=== PATIENT | male | born 1965 | race Caucasian/White ===

== ENCOUNTER 2016-08-21 18:20 | Emergency (ER) | payer OTHER ==
[~2016-08-21] VITALS: Ht 203.2 cm; Wt 148.3 kg
[~2016-08-21 18:20] MED LIST: ACET325T9 PO; ARIP30TA PO; ASPI81TA2 PO; BENZ2TAB5 PO; CEPH-263 PO; CLON0.5T3 PO; DOXY100C2 PO; FLUP5TAB PO; FURO80TA3 PO; GABA-586 PO; HYDR-971 PO; IBUP-1027 PO; LEVE500T6 PO; LEVO100T5 PO; MELA5CAP PO; METF500T4 PO; METO25TA4 PO; OMEP40CA5 PO; OXCA600T PO; OXCA600T3 PO; POLY17PO3 PO; POTA20TA82 PO; TRAZ50TA15 PO
[2016-08-21 18:41] VITALS: BP 134/77
--- NOTE | 2016-08-21 19:05 | PHYS DOC ---
Past Medical History Past Medical History: Anxiety, CHF, CVA, Depression, Diabetes-Type II, Hypertension, [place], Seizure, Other Additional Past Medical Histor: BIPOLAR, SUBDURAL HERMATOMA Past Surgical History: Other Additional Past Surgical Histo: VERICOSE VEINS, NEUROPATHY HIATAL HERNIA CELLULITIS Alcohol Use: Occasionally Drug Use: Cocaine Adult General Chief Complaint Chief Complaint: BACK PAIN - NO INJURY HPI HPI Patient is a 50 year old male presents to emergency department complaining of back pain and bilateral feet pain. Patient is very well-known here to the emergency department he has had multiple visits within the month. Patient states that he is having back pain from an accident that he had back in May. He also states that he is having bilateral lower feet pain from a cellulitis that he's had for over a month as well. He states that he is just having increased pain and discomfort in that is why he came to the emergency department. 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 Patient denies any other complaints at this time. Review of Systems Review of Systems Constitutional: Denies fever or chills [] Eyes: Denies change in visual acuity, redness, or eye pain [] HENT: Denies nasal congestion or sore throat [] Respiratory: Denies cough or shortness of breath [] Cardiovascular: No additional information not addressed in HPI [] GI: Denies abdominal pain, nausea, vomiting, bloody stools or diarrhea [] : Denies dysuria or hematuria [] Musculoskeletal: back pain and bilateral feet pain Integument: Denies rash or skin lesions [] Neurologic: Denies headache, focal weakness or sensory changes [] Allergies Allergies Allergies Coded Allergies Type Severity Reaction Last Updated Verified No Known Drug Allergies 04/05/16 No Physical Exam Physical Exam Constitutional: Well developed, well nourished, no acute distress, non-toxic appearance. [] HENT: Normocephalic, atraumatic, bilateral external ears normal, oropharynx moist, no oral exudates, nose normal. [] Eyes: PERRLA, EOMI, conjunctiva normal, no discharge. [] Neck: Normal range of motion, no tenderness, supple, no stridor. [] Cardiovascular:Heart rate regular rhythm, no murmur [] Lungs & Thorax: Bilateral breath sounds clear to auscultation [] Abdomen: Bowel sounds normal, soft, no tenderness, no masses, no pulsatile masses. [] Skin: Warm, dry, no erythema, no rash. [] Back: No medical spine, thoracic spine or lumbar spine tenderness. No step-offs deformities or crepitus noted. Extremities: No tenderness, no cyanosis, no clubbing, ROM intact, no edema. Bilateral lower extremities appear to have scaly feet peripheral pulses are 2+ cap refill brisk less than 2 seconds. Patient is able to ambulate with a good steady gait. Neurologic: Alert and oriented X 3, normal motor function, normal sensory function, no focal deficits noted. [] Psychologic: Affect normal, judgement normal, mood normal. [] Current Patient Data Vital Signs Vital Signs Date Time Temp Pulse Resp B/P Pulse Ox O2 Delivery O2 Flow Rate FiO2 08/21/16 18:41 97.9 76 20 95 Room Air 97.9 EKG EKG [] Radiology/Procedures Radiology/Procedures [] Course & Med Decision Making Course & Med Decision Making Pertinent Labs and Imaging studies reviewed. (See chart for details) She'll be discharged home in stable condition. Patient was instructed to go to [facility] that is open 24 hours a day to fill his prescription of hydrocodone to help with his pain and discomfort. Also spoke with patient in regards to the emergency department visits in which he has had. Explained to patient that if he has pain medication in which he can get filled he needs to comply with prior to coming to the emergency department for further pain medication. Patient then requested food explained to patient that it is after 7:00 or cafeterias) able to provide meals for him. Explained to him that he should be going to [facility] to picker tender helper his prescription he can purchase food at that time. Patient will be discharged with signs and symptoms to return back to emergency department. Dragon Disclaimer Dragon Disclaimer This electronic medical record was generated, in whole or in part, using a voice recognition dictation system. Departure Departure Impression: Primary Impression: Chronic back pain Additional Impression: Bilateral foot pain Disposition: 01 HOME, SELF-CARE Condition: STABLE Referrals: NO PCP (PCP) Patient Instructions: Chronic Back Pain, Chronic Pain Additional Instructions: You have been evaluated for your chronic back pain as well as your chronic feet pain. You state you have a prescription at [facility] in which she can picker tender helper for hydrocodone. He needs to go to [facility] and pick the prescription up. Follow-up with her primary care physician for any continuation of pain and discomfort. Return to emergency prior signs symptoms of become worse. Problem Qualifiers LOIS LOCKHART NP Aug 21, 2016 19:05
== END 2016-08-21 19:07 | disposition home or self-care (01) ==
LOC: ER 18:20
DX: G89.29 Other chronic pain (principal); M54.9 Dorsalgia, unspecified; M79.671 Pain in right foot; M79.672 Pain in left foot; F41.9 Anxiety disorder, unspecified; I11.0 Hypertensive heart disease with heart failure; I50.9 Heart failure, unspecified; I25.2 Old myocardial infarction; E11.40 Type 2 diabetes mellitus with diabetic neuropathy, unspecified; F31.9 Bipolar disorder, unspecified; F14.10 Cocaine abuse, uncomplicated; Z86.73 Personal history of transient ischemic attack (TIA), and cerebral infarction without residual deficits
CPT/HCPCS: 99281

== ENCOUNTER 2016-09-24 09:31 | Emergency (ER) | payer OTHER ==
[~2016-09-24] VITALS: Ht 203.2 cm; Wt 138.3 kg
[2016-09-24 09:31] VITALS: BP 124/63
[2016-09-24 10:02] LABS: BASO % 1 % (0-3); EOS % 2 % (0-3); HEMATOCRIT 39.8 % (39.0-53.0); HEMOGLOBIN 13.1 g/dL (13.0-17.5); LYMPH % 22 % (24-48); MEAN CORPUSCULAR HEMOGLOBIN 27 pg (25-35); MEAN CORPUSCULAR HGB CONC 33 g/dL (31-37); MEAN CORPUSCULAR VOLUME 83 fL (79-100); MONO % 8 % (0-9); NEUT % 67 % (31-73); PLATELET COUNT 153 x10^3/uL (140-400); RED BLOOD COUNT 4.81 x10^6/uL (4.30-5.70); RED CELL DISTRIBUTION WIDTH 14.9 % (11.5-14.5); WHITE BLOOD COUNT 4.7 x10^3/uL (4.0-11.0)
[2016-09-24 10:12] LABS: CALCIUM 9.2 mg/dL (8.5-10.1); CREATININE 0.9 mg/dL (0.7-1.3); GFR 88.6
--- NOTE | 2016-09-24 10:17 | RAD ---
Examination: Acute abdomen series. History: history of chest pain, abdominal pain Comparison: None available Findings: The cardiomediastinal silhouette grossly appears unremarkable. There is no acute infiltrate or visualized pneumothorax identified. No evidence of free air noted under the hemidiaphragms. Paucity of gas in the abdomen limits evaluation of small bowel. Moderate amount of feces identified throughout the colon and the rectum likely secondary to constipation. Nonspecific bowel gas pattern. Impression: 1. No acute cardiopulmonary findings. 2. Nonspecific bowel gas pattern. Moderate amount of stool noted throughout the colon and the rectum likely secondary to constipation.
[2016-09-24 10:18] LABS: ALBUMIN/GLOBULIN RATIO 1.3 (1.0-1.7); TOTAL BILIRUBIN 0.6 mg/dL (0.2-1.0); TOTAL PROTEIN 7.2 g/dL (6.4-8.2)
--- NOTE | 2016-09-24 10:29 | EKG ---
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 RI6.01 Unconfirmed report Electronically Signed On 09-26-2016 14:03:24 SHEET ROCKER by Adiel De León
--- NOTE | 2016-09-24 10:43 | ED.ADGEN ---
Past Medical History Past Medical History: Anxiety, CHF, CVA, Depression, Diabetes-Type II, Hypertension, CA, Seizure, Other Additional Past Medical Histor: BIPOLAR, SUBDURAL HERMATOMA Past Surgical History: Other Additional Past Surgical Histo: VERICOSE VEINS, NEUROPATHY HIATAL HERNIA CELLULITIS Alcohol Use: Occasionally Drug Use: None, Cocaine Adult General Chief Complaint Chief Complaint: CHEST PAIN HPI HPI Patient is a 51 year old man, history of type 2 diabetes mellitus, CAD, CHF, CVA, hypertension, bipolar disorder, history of subdural hematoma, who presents emergency department with multiple complaints. Patient states that he was exiting the grocery store naproxen hour ago, when he began experiencing some chest pain and abdominal pain. He states he experienced pain like this previously from his hiatal hernia. He states he had a little shortness of breath associated with this well. At this time he is resting comfortably. He denies any recent travel or surgery, any swelling extremities, any fevers or chills. No cough, no rhinorrhea, no sick contacts or exposures, no diarrhea, nausea or vomiting. A breakfast this morning without issue. Last bowel was yesterday and was normal. States he he has been compliant with his medications. Patient is well-known to emergency department staff for multiple previous visits for similar complaints. Review of Systems Review of Systems Constitutional: Denies fever or chills. [] Eyes: Denies change in visual acuity. [] HENT: Denies nasal congestion or sore throat. [] Respiratory: Denies cough, mild shortness of breath, now resolved. [] Cardiovascular: Midsternal chest pain and epigastric pain, no edema. GI: Epigastric abdominal pain, mild lower quadrant abdominal pain, no nausea, vomiting, bloody stools or diarrhea. [] : Denies dysuria. [] Musculoskeletal: Denies back pain or joint pain. [] Integument: Denies rash. [] Neurologic: Denies headache, focal weakness or sensory changes. [] Endocrine: Denies polyuria or polydipsia. [] Lymphatic: Denies swollen glands. [] Psychiatric: Denies depression or anxiety. [] Allergies Allergies Allergies Coded Allergies Type Severity Reaction Last Updated Verified No Known Drug Allergies 04/05/16 No Physical Exam Physical Exam Constitutional: Well developed, well nourished, no acute distress, non-toxic appearance. [] HENT: Normocephalic, atraumatic, bilateral external ears normal, oropharynx moist, no oral exudates, nose normal. [] Eyes: PERRLA, EOMI, conjunctiva normal, no discharge. [] Neck: Normal range of motion, no tenderness, supple, no stridor. [] Cardiovascular:Heart rate regular rhythm, no murmur, S1, S2, no rubs or gallops. [] Lungs & Thorax: Bilateral breath sounds clear to auscultation diminished breath sounds at bases bilaterally normal, soft, no tenderness, no masses, no pulsatile masses. [] Skin: Warm, dry, no erythema, no rash. [] Back: No tenderness, no CVA tenderness. [] Extremities: No tenderness, no cyanosis, no clubbing, ROM intact, patient with trace edema bilaterally, however based on comparative appearance, his legs are significant improvement previous examinations, no evidence of weeping or cellulitis. Neurologic: Alert and oriented X 3, normal motor function, normal sensory function, no focal deficits noted. [] Psychologic: Affect normal, judgement normal, mood normal. [] Current Patient Data Vital Signs Vital Signs Date Time Temp Pulse Resp B/P Pulse Ox O2 Delivery O2 Flow Rate FiO2 09/24/16 09:31 97.6 76 22 124/63 96 Room Air 97.6 Lab Values Laboratory Tests Test 09/24/16 09:45 09/24/16 11:00 09/24/16 11:35 White Blood Count 4.7x10^3/uL (4.0-11.0) Red Blood Count 4.81x10^6/uL (4.30-5.70) Hemoglobin 13.1g/dL (13.0-17.5) Hematocrit 39.8% (39.0-53.0) Mean Corpuscular Volume 83fL (79-100) Mean Corpuscular Hemoglobin 27pg (25-35) Mean Corpuscular Hemoglobin Concent 33g/dL (31-37) Red Cell Distribution Width 14.9% (11.5-14.5) H Platelet Count 153x10^3/uL (140-400) Neutrophils (%) (Auto) 67% (31-73) Lymphocytes (%) (Auto) 22% (24-48) L Monocytes (%) (Auto) 8% (0-9) Eosinophils (%) (Auto) 2% (0-3) Basophils (%) (Auto) 1% (0-3) Neutrophils # (Auto) 3.1x10^3uL (1.8-7.7) Lymphocytes # (Auto) 1.0x10^3/uL (1.0-4.8) Monocytes # (Auto) 0.4x10^3/uL (0.0-1.1) Eosinophils # (Auto) 0.1x10^3/uL (0.0-0.7) Basophils # (Auto) 0.0x10^3/uL (0.0-0.2) Sodium Level 139mmol/L (136-145) Potassium Level 4.0mmol/L (3.5-5.1) Chloride Level 103mmol/L (98-107) Carbon Dioxide Level 28mmol/L (21-32) Anion Gap 8 (6-14) Blood Urea Nitrogen 9mg/dL (8-26) Creatinine 0.9mg/dL (0.7-1.3) Estimated GFR (Cockcroft-Gault) 88.6 BUN/Creatinine Ratio 10 (6-20) Glucose Level 88mg/dL (70-99) Calcium Level 9.2mg/dL (8.5-10.1) Total Bilirubin 0.6mg/dL (0.2-1.0) Aspartate Amino Transferase (AST) 20U/L (15-37) Alanine Aminotransferase (ALT) 39U/L (16-63) Alkaline Phosphatase 65U/L (46-116) Troponin I Quantitative < 0.017ng/mL (0.000-0.055) UA-Fsk-H-Type Natriuretic Peptide 151pg/mL (0-124) H Total Protein 7.2g/dL (6.4-8.2) Albumin 4.0g/dL (3.4-5.0) Albumin/Globulin Ratio 1.3 (1.0-1.7) Lipase 159U/L (73-393) Urine Opiates Screen Neg (NEG) Urine Methadone Screen Neg (NEG) Urine Barbiturates Neg (NEG) Urine Phencyclidine Screen Neg (NEG) Urine Amphetamine/Methamphetamine Neg (NEG) Urine Benzodiazepines Screen Neg (NEG) Urine Cocaine Screen Neg (NEG) Urine Cannabinoids Screen Neg (NEG) Urine Ethyl Alcohol Neg (NEG) POC Troponin I 0.00ng/ml (<0.08) Laboratory Tests 09/24/16 09:45 Laboratory Tests 09/24/16 09:45 EKG EKG EC: Sinus rhythm, heart rate 69 bpm, upright axis, QTC of 419, HI of 210 , QRS of 90, no ST elevations or depressions, no evidence of acute ST abnormalities. As interpreted by me. [] Radiology/Procedures Radiology/Procedures [] [facility] [address] [place] [address] IMAGING REPORT Signed PATIENT: MANOLO RODRIGUEZ ACCOUNT: [id number] : 1965 LOCATION: ER AGE: 51 SEX: M EXAM STATUS: PRE ER ORD. PHYSICIAN: LORENA VEGA DO REASON: cp/abd pain PROCEDURE: ACUTE ABDOMEN SERIES Examination: Acute abdomen series. History: history of chest pain, abdominal pain Comparison: None available Findings: The cardiomediastinal silhouette grossly appears unremarkable. There is no acute infiltrate or visualized pneumothorax identified. No evidence of free air noted under the hemidiaphragms. Paucity of gas in the abdomen limits evaluation of small bowel. Moderate amount of feces identified throughout the colon and the rectum likely secondary to constipation. Nonspecific bowel gas pattern. Impression: 1. No acute cardiopulmonary findings. 2. Nonspecific bowel gas pattern. Moderate amount of stool noted throughout the colon and the rectum likely secondary to constipation. DICTATED and SIGNED BY: WEN STAPLES MD DATE: 09/24/16 1012 CC: LORENA VEGA DO; NO PCP ~ Course & Med Decision Making Course & Med Decision Making Pertinent Labs and Imaging studies reviewed. (See chart for details) Patient's x-ray consistent with constipation. ECG and laboratory studies not reveal any evidence of acutely concerning findings. On reevaluation, patient states that he is hungry and would like to eat. He states he does not have any food in his hotel room. Repeat troponin performed in the ED, more than 4 hours out from onset of symptoms, remains negative. No evidence that the patient is experiencing any cardiac or pulmonary disease, I did discuss this with patient, he is ready to be discharged, is agreeable with plan to follow-up with primary care provider, has his medications at home, he was given a meal box in the emergency department which she ate without any issue. Patient discharged home with instructions as above, to return for concerning symptoms, to follow-up with his primary care provider. Given bus pass, exit the emergency department without issue. Dragon Disclaimer Dragon Disclaimer This electronic medical record was generated, in whole or in part, using a voice recognition dictation system. Departure Disposition: HOME, SELF-CARE Condition: IMPROVED Scripts Docusate Sodium (Colace)100 Mg [id number] Mg PO QHS PRN CONSTIPATION #20 Prov:LORENA VEGA DO 09/24/16 LORENA VEGA DO Sep 24, 2016 10:43
[2016-09-24 11:17] LABS: BARBITURATES NEG (NEG); BENZODIAZEPINES NEG (NEG); CANNABINOIDS NEG (NEG); COCAINE NEG (NEG); ETHANOL, URINE NEG (NEG); METHADONE NEG (NEG); OPIATES NEG (NEG); PHENCYCLIDINE NEG (NEG)
[2016-09-24] MEDS ORDERED: DOCU-27 PO (12:04)
== END 2016-09-24 12:15 | disposition home or self-care (01) ==
LOC: ER 09:31
DX: R07.89 Other chest pain (principal); R10.13 Epigastric pain; E11.40 Type 2 diabetes mellitus with diabetic neuropathy, unspecified; I11.0 Hypertensive heart disease with heart failure; I50.9 Heart failure, unspecified; F31.9 Bipolar disorder, unspecified; I25.2 Old myocardial infarction; I25.10 Atherosclerotic heart disease of native coronary artery without angina pectoris; Z86.73 Personal history of transient ischemic attack (TIA), and cerebral infarction without residual deficits; F14.10 Cocaine abuse, uncomplicated
CPT/HCPCS: 36415; 74022; 80053; 83690; 83880; 84484; 85027; 93005; 99285; G0481

== ENCOUNTER 2016-09-29 14:52 | Emergency (ER) | payer SELFPAY ==
[~2016-09-29] VITALS: Ht 203.2 cm; Wt 138.3 kg
[~2016-09-29 14:52] MED LIST changes: +DOCU-27 PO
[2016-09-29 14:59] VITALS: BP 152/77
--- NOTE | 2016-09-29 15:25 | PHYS DOC ---
Past Medical History Past Medical History: Anxiety, CHF, CVA, Depression, Diabetes-Type II, Hypertension, CA, Seizure, Other Additional Past Medical Histor: BIPOLAR, SUBDURAL HERMATOMA Past Surgical History: Other Additional Past Surgical Histo: VERICOSE VEINS, NEUROPATHY HIATAL HERNIA CELLULITIS Alcohol Use: Occasionally Drug Use: None, Cocaine Adult General Chief Complaint Chief Complaint: OTHER COMPLAINTS [facility] HPI Patient is a 51 year old male with multiple comorbidities and frequent visits to the ED who presents due to hunger since not eating all day. Also mentions has chronic unchanged chest pain, abdominal pain, back pain and leg pains. States these are unchanged for months. States he sees doctors in clinic for these pain symptoms. He denies dyspnea, fatigue, n/v, diarrhea, f/c, cough, hemoptysis, orthopnea, diaphoresis, lightheadedness, palpitations. Review of Systems Review of Systems Constitutional: Denies fever or chills [] Eyes: Denies change in visual acuity, redness, or eye pain [] HENT: Denies nasal congestion or sore throat [] Respiratory: Denies cough or shortness of breath [] Cardiovascular: No additional information not addressed in HPI [] GI: Denies nausea, vomiting, bloody stools or diarrhea [] : Denies dysuria or hematuria [] Musculoskeletal: Denies joint pain [] Integument: Denies rash or skin lesions [] Neurologic: Denies headache, focal weakness or sensory changes [] Endocrine: Denies polyuria or polydipsia [] Allergies Allergies Allergies Coded Allergies Type Severity Reaction Last Updated Verified No Known Drug Allergies 04/05/16 No Physical Exam Physical Exam Constitutional: Well developed, well nourished, no acute distress, non-toxic appearance. [] HENT: Normocephalic, atraumatic, bilateral external ears normal, oropharynx moist, nose normal. [] Eyes: PERRLA, EOMI. [] Neck: Normal range of motion, supple. [] Cardiovascular:Heart rate regular rhythm [] Lungs & Thorax: Bilateral breath sounds clear to auscultation [] Abdomen: Bowel sounds normal, soft, no tenderness, soft nontender easily reducible umbilical hernia. [] Skin: Warm, dry. Lower extremities with chronic appearing brawny discoloration [] Back: No tenderness, no CVA tenderness. [] Extremities: No tenderness, ROM intact. [] Neurologic: Alert and oriented X 3, normal motor function, normal sensory function, no focal deficits noted. [] Psychologic: Affect normal, judgement normal, mood normal. [] Current Patient Data Vital Signs Vital Signs Date Time Temp Pulse Resp B/P Pulse Ox O2 Delivery O2 Flow Rate FiO2 09/29/16 14:59 98.5 71 16 152/77 99 Room Air 98.5 EKG EKG EKG as interpreted by me as normal sinus rhythm with first-degree AV block, rate 68, no ST-T changes, P-R 226, QTC 44, no ectopy Course & Med Decision Making Course & Med Decision Making Pertinent Labs and Imaging studies reviewed. (See chart for details) He was fed and he feels better and is ready to be discharged. Return precautions given. He understands and agrees with plan. Dragon Disclaimer Dragon Disclaimer This electronic medical record was generated, in whole or in part, using a voice recognition dictation system. Departure Departure Impression: Primary Impression: Hunger Additional Impressions: Chronic back pain Chest pain Lower extremity pain Disposition: HOME, SELF-CARE Condition: STABLE Referrals: NO PCP (PCP) Patient Instructions: Medical Screening Exam Additional Instructions: Follow up with your primary care doctor. Return for any concerns. Problem Qualifiers Primary Impression: Hunger Encounter type: initial encounter Qualified Code: T73.0XXA - Starvation, initial encounter Additional Impressions: Chronic back pain Back pain location: low back pain Back pain laterality: bilateral Sciatica presence: without sciatica Qualified Code: M54.5 - Low back pain Chest pain Chest pain type: other chest pain Qualified Code: R07.89 - Other chest pain Lower extremity pain Laterality: bilateral Qualified Code: M79.604 - Pain in right leg Dipesh MOMIN MD Sep 29, 2016 15:25
--- NOTE | 2016-09-29 15:54 | EKG ---
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
== END 2016-09-29 15:46 | disposition home or self-care (01) ==
LOC: ER 14:52
DX: T73.0XXA Starvation, initial encounter (principal); G89.29 Other chronic pain; M54.5 Low back pain; R07.89 Other chest pain; M79.604 Pain in right leg; F41.9 Anxiety disorder, unspecified; I11.0 Hypertensive heart disease with heart failure; I50.9 Heart failure, unspecified; I25.2 Old myocardial infarction; F31.9 Bipolar disorder, unspecified; F14.10 Cocaine abuse, uncomplicated; E11.40 Type 2 diabetes mellitus with diabetic neuropathy, unspecified; Z86.73 Personal history of transient ischemic attack (TIA), and cerebral infarction without residual deficits; X58.XXXA Exposure to other specified factors, initial encounter
CPT/HCPCS: 93005; 99283-25

== ENCOUNTER 2016-10-03 15:34 | Emergency (ER) | payer SELFPAY ==
[~2016-10-03] VITALS: Ht 203.2 cm; Wt 138.3 kg
[2016-10-03 16:33] LABS: POTASSIUM ISTAT 4.1 mmol/L (3.5-5.0)
--- NOTE | 2016-10-03 16:46 | RAD ---
Chest, 2 views, 10/03/2016: History: Shortness of breath, body aches Comparison is made to a study from 09/24/2016. The heart size and pulmonary vascularity are normal. No pulmonary infiltrates are seen. There is no evidence of pleural fluid. Moderate spurring is present in the spine. IMPRESSION: No acute cardiopulmonary abnormality is detected.
--- NOTE | 2016-10-03 16:49 | EKG ---
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
[2016-10-03] MEDS ORDERED: ACETAMINOPHEN 500 MG TABLET PO ONE (17:00)
--- NOTE | 2016-10-03 17:00 | ED.ADGEN ---
Past Medical History Past Medical History: Anxiety, Bipolar, CHF, CVA, Depression, Diabetes-Type II , Hypertension, [place], Seizure, Other Additional Past Medical Histor: SUBDURAL HERMATOMA Past Surgical History: Other Additional Past Surgical Histo: VERICOSE VEINS, NEUROPATHY, HIATAL HERNIA , CELLULITIS Alcohol Use: Occasionally Drug Use: None, Cocaine Social History Narrative: LAST USED AUGUST 2016 Adult General Chief Complaint Chief Complaint: GENERALIZED BODY ACHES HPI HPI Patient is a 51 year old man, history of bipolar disorder, CHF, COPD, CAD, subdural hematoma after fall, who presents to the emergency department with complaint of chest and back pain, body aches. Patient states he's had pain like this previously, and "they gave me hydrocodone at [facility]". He states he ran out of his hydrocodone. Patient denies any shortness of breath, any lightheadedness or dizziness, any weakness numbness or tingling. He states the pain began occurring about an hour ago, and his chest and in his lower back. No injuries, has not taken any medication prior to coming to the ED for the pain. He states he's been compliant with all of his prescribed medications otherwise. No swelling extremities. Review of Systems Review of Systems Constitutional: Denies fever or chills. [] Eyes: Denies change in visual acuity. [] HENT: Denies nasal congestion or sore throat. [] Respiratory: Denies cough or shortness of breath. [] Cardiovascular: Chest pain, no shortness of breath. GI: Denies abdominal pain, nausea, vomiting, bloody stools or diarrhea. [] : Denies dysuria. [] Musculoskeletal: Low back pain, no joint pain. Integument: Denies rash. [] Neurologic: Denies headache, focal weakness or sensory changes. [] Endocrine: Denies polyuria or polydipsia. [] Lymphatic: Denies swollen glands. [] Psychiatric: Denies depression or anxiety. [] Current Medications Current Medications Current Medications Medications (Trade) Dose Ordered Sig/Paulie Start Time Stop Time Status Last Admin Dose Admin Acetaminophen (Tylenol) 1,000 mg 1X ONCE 10/03/16 17:00 10/03/16 17:02 DC 10/03/16 17:07 1,000 MG Allergies Allergies Allergies Coded Allergies Type Severity Reaction Last Updated Verified No Known Drug Allergies 04/05/16 No Physical Exam Physical Exam Constitutional: Well developed, well nourished, no acute distress, non-toxic appearance. [] HENT: Normocephalic, atraumatic, bilateral external ears normal, oropharynx moist, no oral exudates, nose normal. [] Eyes: PERRLA, EOMI, conjunctiva normal, no discharge. [] Neck: Normal range of motion, no tenderness, supple, no stridor. [] Cardiovascular:Heart rate regular rhythm, no murmur, S1, S2, rubs or gallops. [] Lungs & Thorax: Bilateral breath sounds clear to auscultation, no wheezing, rhonchi, rales. No chest wall crepitus or tenderness. [] Abdomen: Bowel sounds normal, soft, no tenderness, no rebound, no rigidity, no guarding, no masses, no pulsatile masses. [] Skin: Warm, dry, no erythema, no rash. [] Back: No midline or paraspinal tenderness, no CVA tenderness. [] Extremities: No tenderness, no cyanosis, no clubbing, ROM intact, no edema. [ Negative Homans sign.] Neurologic: Alert and oriented X 3, normal motor function, normal sensory function, no focal deficits noted. [] Psychologic: Affect normal, judgement normal, mood normal. [] Current Patient Data Vital Signs Vital Signs Date Time Temp Pulse Resp B/P Pulse Ox O2 Delivery O2 Flow Rate FiO2 10/03/16 15:53 98 89 18 158/79 97 Room Air 98.0 Lab Values Laboratory Tests Test 10/03/16 14:45 10/03/16 16:26 10/03/16 16:29 Urine Collection Type Unknown Urine Color Yellow Urine Clarity Clear Urine pH 5.5 Urine Specific [place] 1.025 Urine Protein Negativemg/dL (NEG-TRACE) Urine Glucose (UA) Negativemg/dL (NEG) Urine Ketones (Stick) Negativemg/dL (NEG) Urine Blood Negative (NEG) Urine Nitrite Negative (NEG) Urine Bilirubin Negative (NEG) Urine Urobilinogen Dipstick 1.0mg/dL (0.2 mg/dL) Urine Leukocyte Esterase Negative (NEG) Urine RBC Rare/HPF (0-2) Urine WBC 1-4/HPF (0-4) Urine Squamous Epithelial Cells Mod/LPF Urine Bacteria Few/HPF (0-FEW) Urine Mucus Mod/LPF POC Troponin I 0.00ng/ml (<0.08) POC Hemoglobin 12.9g/dL (14-18) L POC Hematocrit 38% (37-52) POC Sodium 142mmol/L (135-145) POC Potassium 4.1mmol/L (3.5-5.0) POC Chloride 104mmol/L (98-110) POC Total CO2 23mmol/L (23-32) Anion Gap 20mmol/L (6-14) H POC Blood Urea Nitrogen 17mg/dL (8-26) POC Creatinine 1.1mg/dL (0.5-1.4) Glucose Level 111mg/dL (70-99) H POC Ionized Calcium (Yajaira) 1.16mmol/L (1.13-1.32) Laboratory Tests 10/03/16 16:29 EKG EKG EC: Sinus rhythm, heart rate 68 bpm, upright axis, QTC of 404, [place] of 204 , QRS of 90, mild baseline artifact noted, no ST elevations or depressions identified, does not meet STEMI criteria. As interpreted by me. [] Radiology/Procedures Radiology/Procedures [] [facility] [address] [place] [address] IMAGING REPORT Signed PATIENT: MANOLO RODRIGUEZ ACCOUNT: [id number] : 1965 LOCATION: ER AGE: 51 SEX: M EXAM STATUS: REG ER ORD. PHYSICIAN: LORENA VEGA DO REASON: CP PROCEDURE: CHEST PA & LATERAL Chest, 2 views, 10/03/2016: History: Shortness of breath, body aches Comparison is made to a study from 09/24/2016. The heart size and pulmonary vascularity are normal. No pulmonary infiltrates are seen. There is no evidence of pleural fluid. Moderate spurring is present in the spine. IMPRESSION: No acute cardiopulmonary abnormality is detected. DICTATED and SIGNED BY: VIDHYA MERRITT MD DATE: 10/03/16 1642 CC: LORENA VEGA DO; NO PCP ~ Course & Med Decision Making Course & Med Decision Making Pertinent Labs and Imaging studies reviewed. (See chart for details) Patient is well-known to me from previous visits. Patient is well-appearing today, with resolution of his edema the lower extremities, appears comfortable. Discussed with patient that we are unable to prescribe narcotics for this type of situation in the emergency department. Patient voices understanding, is agreeable to receiving ECG, laboratory studies to ensure that the acute having this time. Patient is requesting a meal tray. ECG, chest x-ray, i-STAT troponin and i-STAT chemistry ordered along with urinalysis to evaluate the patient's complaints. No concerning findings identified. On reevaluation patient is resting comfortably, states his resolution of his symptoms and is rated go home. Patient states he has all medications at home that he needs, and has follow-up established. Discharged home in stable condition with plan as above. Dragon Disclaimer Dragon Disclaimer This electronic medical record was generated, in whole or in part, using a voice recognition dictation system. Departure Impression: Primary Impression: Back pain Additional Impression: Chest pain Disposition: HOME, SELF-CARE Condition: IMPROVED Problem Qualifiers LORENA VEGA DO Oct 03, 2016 17:00
[2016-10-03 17:02] LABS: BILIRUBIN,URINE NEGATIVE (NEG); GLUCOSE,URINE NEGATIVE (NEG); NITRITE,URINE NEGATIVE (NEG); PH,URINE 5.5; PROTEIN,URINE NEGATIVE (NEG-TRACE)
[2016-10-03 17:18] LABS: BACTERIA,URINE FEW /HPF (0-FEW); RBC,URINE RARE /HPF (0-2); SQUAMOUS EPITHELIAL CELL,UR MOD /LPF
[2016-10-03 17:32] VITALS: BP 158/84
== END 2016-10-03 17:55 | disposition home or self-care (01) ==
LOC: ER 15:34
DX: R07.89 Other chest pain (principal); M54.5 Low back pain; I11.0 Hypertensive heart disease with heart failure; I50.9 Heart failure, unspecified; E11.40 Type 2 diabetes mellitus with diabetic neuropathy, unspecified; F31.9 Bipolar disorder, unspecified; I25.10 Atherosclerotic heart disease of native coronary artery without angina pectoris; I25.2 Old myocardial infarction; F41.9 Anxiety disorder, unspecified; F14.10 Cocaine abuse, uncomplicated; Z86.73 Personal history of transient ischemic attack (TIA), and cerebral infarction without residual deficits
CPT/HCPCS: 71020; 80047; 81001; 84484; 93005; 99285-25

== ENCOUNTER 2016-10-05 19:47 | Emergency (ER) | payer SELFPAY ==
[2016-10-05 19:53] VITALS: BP 129/64
--- NOTE | 2016-10-05 20:49 | PHYS DOC ---
Past Medical History Past Medical History: Anxiety, Bipolar, CHF, CVA, Depression, Diabetes-Type II , Hypertension, [place], Seizure, Other Additional Past Medical Histor: SUBDURAL HERMATOMA Past Surgical History: Other Additional Past Surgical Histo: VERICOSE VEINS, NEUROPATHY, HIATAL HERNIA , CELLULITIS Alcohol Use: Occasionally Drug Use: None, Cocaine Adult General Chief Complaint Chief Complaint: ABDOMINAL PAIN HPI HPI 51-year-old male well known to our emergency Department presents with a variety of complaints including abdominal pain and rib pain and headache. He also states he is very hungry and wonders if he could have a sandwich. He denies any fever chills sweats cough congestion. He denies any melena or hematemesis. [] Review of Systems Review of Systems Constitutional: Denies fever or chills [] Eyes: Denies change in visual acuity, redness, or eye pain [] HENT: Denies nasal congestion or sore throat [] Respiratory: Denies cough or shortness of breath [] Cardiovascular: No additional information not addressed in HPI [] GI: Per history of present illness [] : Denies dysuria or hematuria [] Musculoskeletal: Denies back pain or joint pain [] Integument: Denies rash or skin lesions [] Neurologic: Denies headache, focal weakness or sensory changes [] Endocrine: Denies polyuria or polydipsia [] Allergies Allergies Allergies Coded Allergies Type Severity Reaction Last Updated Verified No Known Drug Allergies 04/05/16 No Physical Exam Physical Exam Constitutional: Well developed, well nourished, no acute distress, non-toxic appearance. [] HENT: Normocephalic, atraumatic, bilateral external ears normal, oropharynx moist, no oral exudates, nose normal. [] Eyes: PERRLA, EOMI, conjunctiva normal, no discharge. [] Neck: Normal range of motion, no tenderness, supple, no stridor. [] Cardiovascular:Heart rate regular rhythm, no murmur [] Lungs & Thorax: Bilateral breath sounds clear to auscultation [] Abdomen: Bowel sounds normal, soft, no tenderness, no masses, no pulsatile masses. [] Skin: Warm, dry, no erythema, no rash. [] Back: No tenderness, no CVA tenderness. [] Extremities: No tenderness, no cyanosis, no clubbing, ROM intact, no edema. [] Neurologic: Alert and oriented X 3, normal motor function, normal sensory function, no focal deficits noted. [] Psychologic: Affect normal, judgement normal, mood normal. [] Current Patient Data Vital Signs Vital Signs Date Time Temp Pulse Resp B/P Pulse Ox O2 Delivery O2 Flow Rate FiO2 10/05/16 19:53 98.3 92 22 129/64 97 Room Air 98.3 EKG EKG [] Radiology/Procedures Radiology/Procedures [] Course & Med Decision Making Course & Med Decision Making Pertinent Labs and Imaging studies reviewed. (See chart for details) [ED course: Evaluation reveals a 51-year-old male in no distress area he felt much better after eating a turkey sandwich. Patient is stable for discharge home ] Dragon Disclaimer Dragon Disclaimer This electronic medical record was generated, in whole or in part, using a voice recognition dictation system. Departure Departure Impression: Primary Impression: Hunger Disposition: 01 HOME, SELF-CARE Condition: STABLE Referrals: NO PCP (PCP) Patient Instructions: Abdominal Pain Additional Instructions: Return him or department with any new or concerning symptoms Problem Qualifiers Primary Impression: Hunger Encounter type: initial encounter Qualified Code: T73.0XXA - Starvation, initial encounter HETAL BUSTAMANTE DO Oct 05, 2016 20:49
== END 2016-10-05 21:26 | disposition home or self-care (01) ==
LOC: ER 19:47
DX: T73.0XXA Starvation, initial encounter (principal); R10.9 Unspecified abdominal pain; R51 Headache; R07.81 Pleurodynia; I11.0 Hypertensive heart disease with heart failure; I50.9 Heart failure, unspecified; E11.40 Type 2 diabetes mellitus with diabetic neuropathy, unspecified; F32.9 Major depressive disorder, single episode, unspecified; F41.9 Anxiety disorder, unspecified; F14.10 Cocaine abuse, uncomplicated; Z86.73 Personal history of transient ischemic attack (TIA), and cerebral infarction without residual deficits; I25.2 Old myocardial infarction
CPT/HCPCS: 99281

== ENCOUNTER 2016-12-30 21:02 | Emergency (ER) | payer OTHER ==
[~2016-12-30] VITALS: Ht 188 cm; Wt 138.3 kg
[~2016-12-30 21:02] MED LIST changes: -ARIP30TA PO; +ARIP30TA4 PO; +ASPI-630 PO; -ASPI81TA2 PO; +DOCU-109 PO; -DOCU-27 PO
--- NOTE | 2016-12-30 21:30 | PHYS DOC ---
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 Patient was evaluated at [facility] emergency department just prior to coming to [facility] emergency department. He states that he came here because would not admit him for his bedbug problem at home. Patient has no new complaints upon arrival., Chest pain, nausea , vomiting, abdominal pain, diarrhea. He states that his skin does itch because of the bedbugs. Review of Systems Review of Systems Constitutional: Denies fever or chills [] Eyes: Denies change in visual acuity, redness, or eye pain [] HENT: Denies nasal congestion or sore throat [] Respiratory: Denies cough or shortness of breath [] Cardiovascular: No additional information not addressed in HPI [] GI: Denies abdominal pain, nausea, vomiting, bloody stools or diarrhea [] : Denies dysuria or hematuria [] Musculoskeletal: Denies back pain or joint pain [] Integument: Insect bites, itching Neurologic: Denies headache, focal weakness or sensory changes [] Endocrine: Denies polyuria or polydipsia [] Allergies Allergies Allergies Coded Allergies Type Severity Reaction Last Updated Verified No Known Drug Allergies 04/05/16 No Physical Exam Physical Exam Constitutional: Well developed, well nourished, no acute distress, non-toxic appearance. [] HENT: Normocephalic, atraumatic, bilateral external ears normal, oropharynx moist, no oral exudates, nose normal. [] Eyes: PERRLA, EOMI, conjunctiva normal, no discharge. [] Neck: Normal range of motion, no tenderness, supple, no stridor. [] Cardiovascular:Heart rate regular rhythm, no murmur [] Lungs & Thorax: Bilateral breath sounds clear to auscultation [] Abdomen: Bowel sounds normal, soft, no tenderness, no masses, no pulsatile masses. [] Skin: Warm, dry, patient has multiple bedbug bites on his body. Some are excoriated, there are no vesicles, bullae, pustules. There is no erythema. There is no induration. Back: No tenderness, no CVA tenderness. [] Extremities: No tenderness, no cyanosis, no clubbing, ROM intact, no edema. [] Neurologic: Alert and oriented X 3, normal motor function, normal sensory function, no focal deficits noted. [] Psychologic: Affect normal, judgement normal, mood normal. [] EKG EKG [] Radiology/Procedures Radiology/Procedures [] Course & Med Decision Making Course & Med Decision Making Pertinent Labs and Imaging studies reviewed. (See chart for details) [] Dragon Disclaimer Dragon Disclaimer This electronic medical record was generated, in whole or in part, using a voice recognition dictation system. Departure Departure Impression: Primary Impression: Insect bite Disposition: 01 HOME, SELF-CARE Condition: STABLE Referrals: NO PCP (PCP) Patient Instructions: Insect Bite, [id number] ALEK JARRETT APRN Dec 30, 2016 21:30
[2016-12-31 21:20] VITALS: BP 165/98
== END 2016-12-30 21:40 | disposition home or self-care (01) ==
LOC: ER 21:02
DX: T14.8 Other injury of unspecified body region (principal); F41.9 Anxiety disorder, unspecified; F31.9 Bipolar disorder, unspecified; I11.0 Hypertensive heart disease with heart failure; I50.9 Heart failure, unspecified; I25.2 Old myocardial infarction; E11.40 Type 2 diabetes mellitus with diabetic neuropathy, unspecified; F14.10 Cocaine abuse, uncomplicated; Z86.73 Personal history of transient ischemic attack (TIA), and cerebral infarction without residual deficits; W57.XXXA Bitten or stung by nonvenomous insect and other nonvenomous arthropods, initial encounter; Y93.89 Activity, other specified; Y92.89 Other specified places as the place of occurrence of the external cause; Y99.8 Other external cause status
CPT/HCPCS: 99284

== ENCOUNTER 2017-01-05 21:15 | Emergency (ER) | payer OTHER ==
[~2017-01-05] VITALS: Ht 203.2 cm; Wt 138.3 kg
[2017-01-05 21:22] VITALS: BP 172/80
[2017-01-05 21:58] LABS: BASO # 0.1 x10^3/uL (0.0-0.2); BASO % 1 % (0-3); EOS % 4 % (0-3); HEMATOCRIT 33.1 % (39.0-53.0); HEMOGLOBIN 11.3 g/dL (13.0-17.5); LYMPH # 1.4 x10^3/uL (1.0-4.8); LYMPH % 18 % (24-48); MEAN CORPUSCULAR HEMOGLOBIN 30 pg (25-35); MEAN CORPUSCULAR HGB CONC 34 g/dL (31-37); MEAN CORPUSCULAR VOLUME 89 fL (79-100); MONO % 9 % (0-9); NEUT % 68 % (31-73); PLATELET COUNT 165 x10^3/uL (140-400); RED BLOOD COUNT 3.73 x10^6/uL (4.30-5.70); RED CELL DISTRIBUTION WIDTH 13.1 % (11.5-14.5); WHITE BLOOD COUNT 7.5 x10^3/uL (4.0-11.0)
[2017-01-05 22:10] LABS: CALCIUM 8.5 mg/dL (8.5-10.1); CREATININE 0.9 mg/dL (0.7-1.3); GFR 88.6; POTASSIUM 3.5 mmol/L (3.5-5.1)
[2017-01-05 22:15] LABS: ALBUMIN 3.6 g/dL (3.4-5.0); ALBUMIN/GLOBULIN RATIO 1.1 (1.0-1.7); TOTAL BILIRUBIN 0.5 mg/dL (0.2-1.0)
--- NOTE | 2017-01-05 22:49 | PHYS DOC ---
Past Medical History Past Medical History: Anxiety, Bipolar, CHF, CVA, Depression, Diabetes-Type II , Hypertension, [place], Seizure, Schizophrenia, Other Additional Past Medical Histor: SUBDURAL HERMATOMA Past Surgical History: Other Additional Past Surgical Histo: VERICOSE VEINS, NEUROPATHY, HIATAL HERNIA , CELLULITIS Alcohol Use: Occasionally Drug Use: Cocaine Adult General Chief Complaint Chief Complaint: PSYCH EVALUATION HPI HPI Patient is a 51 year old gentleman with a history significant for coronary disease, hypertension, diabetes, liver problems, schizophrenia, depression, anxiety, bipolar affective disorder, presents to the ER today for assistance with his mental health issues. Patient was just seen at 2 other healthcare facilities and was discharged after being diagnosed with bedbugs and was decontaminated. Patient reports that he has auditory hallucinations. Patient denies any visual hallucinations. Patient denies any suicidal or homicidal ideation. Patient has any fevers shakes chills nausea vomiting diarrhea chest pain short of breath cough cold or runny nose. Patient denies any other new complaints. Patient reports that he has chronic pain to his lower extremities however that is not new and is not of concern to him. Patient is currently concerned about his mental health and is requesting evaluation by her psychiatric assessment team for possible placement. Patient's physical exam was unremarkable. Patient's alert awake oriented times threes very pleasant. Patient does not appear to be responding to internal stimuli. Patient is currently not hallucinating. Patient's heart with regular rate and rhythm. Lungs were clear. Abdomen was soft nontender no rebound or guarding. Patient did have evidence of chronic arterial insufficiency to his lower 70s. Patient has a small blister to his right big toe which she reports has been there for close to one week now. Patient's ER workup has been significant for a normal lab workup. Patient normal CBC chemistry. Patient's psychiatric assessment team has come by to evaluate him and they feel that the patient is stable to be discharged home. Assessment and plan #1 auditory hallucinations. Patient's clinically and hemodynamically stable. Patient is a history of schizophrenia. Patient is well-known to our our psychiatric assessment team. They have recommended the patient be discharged home he does have appropriate follow-up in place. Patient currently does not appear to be a harm to himself or others. Patient does have appropriate resources as an outpatient. #2 bedbugs: Patient is been decontaminated at . Currently there is no visible bedbugs on the patient. Patient currently has no evidence of cellulitis to the areas where he had what appears to be bedbug bites. Review of Systems Review of Systems Constitutional: Denies fever or chills [] Eyes: Denies change in visual acuity, redness, or eye pain [] HENT: Denies nasal congestion or sore throat [] All other review systems are negative except as documented in the history of present illness portion. Allergies Allergies Allergies Coded Allergies Type Severity Reaction Last Updated Verified No Known Drug Allergies 04/05/16 No Physical Exam Physical Exam Constitutional: Well developed, well nourished, no acute distress, non-toxic appearance. [] HENT: Normocephalic, atraumatic, bilateral external ears normal, oropharynx moist, no oral exudates, nose normal. [] Eyes: PERRLA, EOMI, conjunctiva normal, no discharge. [] Neck: Normal range of motion, no tenderness, supple, no stridor. [] Cardiovascular:Heart rate regular rhythm, Lungs & Thorax: Bilateral breath sounds clear to auscultation [] Abdomen: Bowel sounds normal, soft, no tenderness, no masses, no pulsatile masses. [] Back: No tenderness, no CVA tenderness. [] Neurologic: Alert and oriented X 3, normal motor function, normal sensory function, no focal deficits noted. [] Psychologic: Affect normal, judgement normal, mood normal. [] Current Patient Data Vital Signs Vital Signs Date Time Temp Pulse Resp B/P (MAP) Pulse Ox O2 Delivery O2 Flow Rate FiO2 01/05/17 21:22 98.2 95 20 172/80 (110) 94 Room Air 98.2 Lab Values Laboratory Tests Test 01/05/17 21:50 White Blood Count 7.5 x10^3/uL (4.0-11.0) Red Blood Count 3.73 x10^6/uL (4.30-5.70) L Hemoglobin 11.3 g/dL (13.0-17.5) L Hematocrit 33.1 % (39.0-53.0) L Mean Corpuscular Volume 89 fL (79-100) Mean Corpuscular Hemoglobin 30 pg (25-35) Mean Corpuscular Hemoglobin Concent 34 g/dL (31-37) Red Cell Distribution Width 13.1 % (11.5-14.5) Platelet Count 165 x10^3/uL (140-400) Neutrophils (%) (Auto) 68 % (31-73) Lymphocytes (%) (Auto) 18 % (24-48) L Monocytes (%) (Auto) 9 % (0-9) Eosinophils (%) (Auto) 4 % (0-3) H Basophils (%) (Auto) 1 % (0-3) Neutrophils # (Auto) 5.1 x10^3uL (1.8-7.7) Lymphocytes # (Auto) 1.4 x10^3/uL (1.0-4.8) Monocytes # (Auto) 0.7 x10^3/uL (0.0-1.1) Eosinophils # (Auto) 0.3 x10^3/uL (0.0-0.7) Basophils # (Auto) 0.1 x10^3/uL (0.0-0.2) Sodium Level 139 mmol/L (136-145) Potassium Level 3.5 mmol/L (3.5-5.1) Chloride Level 104 mmol/L (98-107) Carbon Dioxide Level 27 mmol/L (21-32) Anion Gap 8 (6-14) Blood Urea Nitrogen 7 mg/dL (8-26) L Creatinine 0.9 mg/dL (0.7-1.3) Estimated GFR (Cockcroft-Gault) 88.6 BUN/Creatinine Ratio 8 (6-20) Glucose Level 94 mg/dL (70-99) Calcium Level 8.5 mg/dL (8.5-10.1) Total Bilirubin 0.5 mg/dL (0.2-1.0) Aspartate Amino Transferase (AST) 21 U/L (15-37) Alanine Aminotransferase (ALT) 29 U/L (16-63) Alkaline Phosphatase 70 U/L (46-116) Total Protein 7.0 g/dL (6.4-8.2) Albumin 3.6 g/dL (3.4-5.0) Albumin/Globulin Ratio 1.1 (1.0-1.7) Ethyl Alcohol Level < 10 mg/dL (0-10) Laboratory Tests 01/05/17 21:50 Laboratory Tests 01/05/17 21:50 EKG EKG [] Radiology/Procedures Radiology/Procedures [] Course & Med Decision Making Course & Med Decision Making Pertinent Labs and Imaging studies reviewed. (See chart for details) [] Dragon Disclaimer Dragon Disclaimer This electronic medical record was generated, in whole or in part, using a voice recognition dictation system. Departure Departure Impression: Primary Impression: Right foot ulcer Additional Impressions: Bipolar disorder Schizophrenia Auditory hallucinations Bedbug bite Disposition: HOME, SELF-CARE Condition: STABLE Referrals: NO PCP (PCP) Patient Instructions: Bedbugs, Schizophrenia Problem Qualifiers LOLA MEYERS MD Jan 05, 2017 22:49
== END 2017-01-05 23:20 | disposition home or self-care (01) ==
LOC: ER 21:15
DX: F20.9 Schizophrenia, unspecified (principal); E11.621 Type 2 diabetes mellitus with foot ulcer; L97.519 Non-pressure chronic ulcer of other part of right foot with unspecified severity; F31.9 Bipolar disorder, unspecified; T14.8 Other injury of unspecified body region; F41.9 Anxiety disorder, unspecified; I11.0 Hypertensive heart disease with heart failure; I50.9 Heart failure, unspecified; E11.40 Type 2 diabetes mellitus with diabetic neuropathy, unspecified; G89.29 Other chronic pain; I25.2 Old myocardial infarction; F14.10 Cocaine abuse, uncomplicated; Z86.73 Personal history of transient ischemic attack (TIA), and cerebral infarction without residual deficits; W57.XXXA Bitten or stung by nonvenomous insect and other nonvenomous arthropods, initial encounter; Y93.89 Activity, other specified; Y92.89 Other specified places as the place of occurrence of the external cause; Y99.8 Other external cause status
CPT/HCPCS: 36415; 80053; 85027; 99284; G0480; 99285-25

== ENCOUNTER 2017-01-10 22:39 | Emergency (ER) | payer OTHER ==
[~2017-01-10] VITALS: Ht 203.2 cm; Wt 138.3 kg
[2017-01-10 22:45] VITALS: BP 135/65
--- NOTE | 2017-01-10 23:33 | PHYS DOC ---
Past Medical History Past Medical History: Anxiety, Bipolar, CHF, CVA, Depression, Diabetes-Type II , Hypertension, [place], Seizure, Schizophrenia, Other Additional Past Medical Histor: SUBDURAL HERMATOMA Past Surgical History: Other Additional Past Surgical Histo: VERICOSE VEINS, NEUROPATHY, HIATAL HERNIA , CELLULITIS Alcohol Use: Occasionally Drug Use: Cocaine Adult General Chief Complaint Chief Complaint: HEADACHE HPI HPI Patient is a 51 year old gentleman who presents here today requesting a full evaluation to make sure that he is okay. Patient has no real specific complaints. Patient's complaints seem to fluctuate and are consistent for reevaluation between the ER and myself. Patient denies any fevers shakes chills nausea vomiting diarrhea chest pain or shortness of breath. Patient reports he feels dizzy. Patient reports he feels like he might have a seizure. Patient denies any active seizures. Patient reports that he was at [facility] earlier in the lower extremity 15 hour weight so he came here to the ER. Patient has no other complaints at this time. Patient reports he has an appointment tomorrow with his primary care physician at 8 AM. Patient reports she doesn't want to go home because he has bedbugs at home. Patient's physical exam the ER has been unremarkable. I know Mr. Lorenzo well and he appears to be at his baseline mental status. Patient is not having any auditory or visual hallucinations. Patient is not suicidal. Patient isn't homicidal ideation. Assessment and plan 51-year-old gentleman with a history of bipolar disorder who presents here today requesting a full evaluation, a sandwich, and placed to sleep, a urinal. Patient has no acute issues at this time. Patient is clinically hemodynamically stable for further outpatient evaluation by his primary care physician as scheduled tomorrow. I do not see any further need for inpatient or ER evaluation or workup. Review of Systems Review of Systems Constitutional: Denies fever or chills [] Eyes: Denies change in visual acuity, redness, or eye pain [] All other review systems are negative except as documented in the history of present illness portion. Allergies Allergies Allergies Coded Allergies Type Severity Reaction Last Updated Verified No Known Drug Allergies 04/05/16 No Physical Exam Physical Exam Constitutional: Well developed, well nourished, no acute distress, non-toxic appearance. [] HENT: Normocephalic, atraumatic, bilateral external ears normal, oropharynx moist, no oral exudates, nose normal. [] Eyes: PERRLA, EOMI, conjunctiva normal, no discharge. [] Neck: Normal range of motion, no tenderness, supple, no stridor. [] Cardiovascular:Heart rate regular rhyth Abdomen: Bowel sounds normal, soft, no tenderness, no masses, no pulsatile masses. [] Neurologic: Alert and oriented X 3, normal motor function, normal sensory function, no focal deficits noted. [] Psychologic: Affect normal, judgement normal, mood normal. [] Current Patient Data Vital Signs Vital Signs Date Time Temp Pulse Resp B/P (MAP) Pulse Ox O2 Delivery O2 Flow Rate FiO2 01/10/17 22:45 98.7 24 172/80 (110) Room Air 98.7 EKG EKG [] Radiology/Procedures Radiology/Procedures [] Course & Med Decision Making Course & Med Decision Making Pertinent Labs and Imaging studies reviewed. (See chart for details) [] Dragon Disclaimer Dragon Disclaimer This electronic medical record was generated, in whole or in part, using a voice recognition dictation system. Departure Departure Impression: Primary Impression: Dizziness Disposition: 01 HOME, SELF-CARE Referrals: DIAMOND LEONARDO (PCP) Patient Instructions: Dizziness Additional Instructions: Follow-up with your doctor tomorrow as scheduled. LOLA MEYERS MD Jan 10, 2017 23:33
[2017-01-11 07:59] LABS: POTASSIUM ISTAT 3.8 mmol/L (3.5-5.0)
== END 2017-01-10 23:59 | disposition home or self-care (01) ==
LOC: ER 22:39
DX: R42 Dizziness and giddiness (principal); I11.0 Hypertensive heart disease with heart failure; I50.9 Heart failure, unspecified; E11.40 Type 2 diabetes mellitus with diabetic neuropathy, unspecified; F20.9 Schizophrenia, unspecified; Z86.73 Personal history of transient ischemic attack (TIA), and cerebral infarction without residual deficits; F31.9 Bipolar disorder, unspecified; Z98.890 Other specified postprocedural states; I25.2 Old myocardial infarction
CPT/HCPCS: 36415; 80047; 99283

== ENCOUNTER 2017-01-25 13:05 | Emergency (ER) | payer OTHER ==
[~2017-01-25] VITALS: Ht 203.2 cm; Wt 147.4 kg
[2017-01-25 13:22] VITALS: BP 180/71
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
[2017-01-25] MEDS ORDERED: SULF1TAB24 PO (14:56)
== END 2017-01-25 15:02 | disposition home or self-care (01) ==
LOC: ER 13:05
DX: L03.116 Cellulitis of left lower limb (principal); L03.115 Cellulitis of right lower limb; M54.5 Low back pain; F31.9 Bipolar disorder, unspecified; I11.0 Hypertensive heart disease with heart failure; I50.9 Heart failure, unspecified; E11.9 Type 2 diabetes mellitus without complications; I25.2 Old myocardial infarction; F20.9 Schizophrenia, unspecified; E11.40 Type 2 diabetes mellitus with diabetic neuropathy, unspecified; F14.10 Cocaine abuse, uncomplicated; F41.9 Anxiety disorder, unspecified; Z86.73 Personal history of transient ischemic attack (TIA), and cerebral infarction without residual deficits
CPT/HCPCS: 72100; 99284

== ENCOUNTER 2017-01-30 23:56 | Emergency (ER) | payer OTHER ==
[~2017-01-30] VITALS: Ht 193 cm; Wt 147.4 kg
[~2017-01-30 23:56] MED LIST changes: +SULF1TAB24 PO
[2017-01-31 00:01] VITALS: BP 190/86
--- NOTE | 2017-01-31 00:31 | PHYS DOC ---
Past Medical History Past Medical History: Anxiety, Bipolar, CHF, CVA, Depression, Diabetes-Type II , Hypertension, [place], Seizure, Schizophrenia, Other Additional Past Medical Histor: SUBDURAL HERMATOMA Past Surgical History: Other Additional Past Surgical Histo: VERICOSE VEINS, NEUROPATHY, HIATAL HERNIA , CELLULITIS Alcohol Use: Occasionally Drug Use: Cocaine Adult General Chief Complaint Chief Complaint: WOUND CHECK HPI HPI 51-year-old male presenting to the emergency department for wound check and dressing change. He has a history of chronic right foot wounds. He has mild nonradiating pain which is worse with walking in his foot. He reports his wounds are improving currently. He has no other complaints.Onset today. Location generalized. Duration intermittent. No alleviating or exacerbating factors. Review of systems is negative for chest pain shortness of breath abdominal pain nausea vomiting fevers chills numbness weakness or tingling. All other review of systems is negative unless otherwise noted in history of present illness. ED course: 51-year-old male presenting to the emergency department today desiring to have his wound dressings changed. He has chronic wound on his right foot. Dressings were changed. Patient was then discharged home. The patient was then discharged home in stable condition to follow up with their primary care physician over the next 2-3 days. They were to return if their symptoms worsened or if they were concerned for any reason. [id number] discharge instructions and return precautions were given. Patient's questions were answered to their satisfaction. Patient is comfortable plan. Review of Systems Review of Systems SEE ABOVE. Allergies Allergies Allergies Coded Allergies Type Severity Reaction Last Updated Verified No Known Drug Allergies 04/05/16 No Physical Exam Physical Exam SEE ABOVE Constitutional: Well developed, well nourished, no acute distress, non-toxic appearance. [] HENT: Normocephalic, atraumatic, bilateral external ears normal, oropharynx moist, no oral exudates, nose normal. [] Eyes: PERRLA, EOMI, conjunctiva normal, no discharge. [] Neck: Normal range of motion, no tenderness, supple, no stridor. [] Cardiovascular:Heart rate regular rhythm, no murmur [] Lungs & Thorax: Bilateral breath sounds clear to auscultation [] Abdomen: Bowel sounds normal, soft, no tenderness, no masses, no pulsatile masses. [] Skin: Warm, dry, no erythema, no rash. [] Back: No tenderness, no CVA tenderness. [] Extremities: The patient's right foot has a chronic wound. No evidence of cellulitis. 2 second cap refill. I have seen this patient's wounds previously, they are improved from previously. Neurologic: Alert and oriented X 3, normal motor function, normal sensory function, no focal deficits noted. [] Psychologic: Affect normal, judgement normal, mood normal. [] Current Patient Data Vital Signs Vital Signs Date Time Temp Pulse Resp B/P (MAP) Pulse Ox O2 Delivery O2 Flow Rate FiO2 01/31/17 00:01 98.1 94 20 190/86 (120) 96 Room Air 98.1 EKG EKG [] Radiology/Procedures Radiology/Procedures [] Course & Med Decision Making Course & Med Decision Making Pertinent Labs and Imaging studies reviewed. (See chart for details) [] Dragon Disclaimer Dragon Disclaimer This electronic medical record was generated, in whole or in part, using a voice recognition dictation system. Departure Departure Impression: Primary Impression: Visit for wound check Disposition: HOME, SELF-CARE Condition: STABLE Referrals: DIAMOND LEONARDO (PCP) Patient Instructions: Wound Care, [id number], Wound Check MALI LOPEZ MD Jan 31, 2017 00:31
== END 2017-01-31 01:03 | disposition home or self-care (01) ==
LOC: ER 23:56
DX: S91.301D Unspecified open wound, right foot, subsequent encounter (principal); F41.9 Anxiety disorder, unspecified; F31.9 Bipolar disorder, unspecified; I11.0 Hypertensive heart disease with heart failure; I50.9 Heart failure, unspecified; I25.2 Old myocardial infarction; F20.9 Schizophrenia, unspecified; E11.40 Type 2 diabetes mellitus with diabetic neuropathy, unspecified; F14.10 Cocaine abuse, uncomplicated; Z86.73 Personal history of transient ischemic attack (TIA), and cerebral infarction without residual deficits; X58.XXXD Exposure to other specified factors, subsequent encounter
CPT/HCPCS: 99283

== ENCOUNTER 2017-07-10 07:43 | Emergency (ER) | payer OTHER ==
[~2017-07-10] VITALS: Ht 203.2 cm; Wt 147.4 kg
--- NOTE | 2017-07-10 07:54 | PHYS DOC ---
Past Medical History Past Medical History: Anxiety, Bipolar, CHF, CVA, Depression, Diabetes-Type II , Hypertension, [place], Seizure, Schizophrenia, Other Additional Past Medical Histor: SUBDURAL HERMATOMA Past Surgical History: Other Additional Past Surgical Histo: VERICOSE VEINS, NEUROPATHY, HIATAL HERNIA , CELLULITIS Alcohol Use: Occasionally Drug Use: Cocaine Adult General Chief Complaint Chief Complaint: LOWER EXTREMITY SWELLING [facility] HPI Patient is a 51 year old male who presents with bilateral leg swelling and requesting to have his legs were rewrapped. He denies any fevers chills nausea vomiting. He lives in [facility] and he states that there are rewrapped his legs last 2 days. He also states he is missing some of his medications consist or stuck in a machine. We spoke with [facility] and the nurse on duty wrapped his legs last night and states he's been getting all of his medications. Patient states his legs are always this large and swollen. He denies any changes in his legs but states he just wants him rewrapped. He states that other facility since use compression stockings but this one only had Dann wrap available. Review of Systems Review of Systems Constitutional: Denies fever or chills [] Eyes: Denies change in visual acuity, redness, or eye pain [] HENT: Denies nasal congestion or sore throat [] Respiratory: Denies cough or shortness of breath [] Cardiovascular: No additional information not addressed in HPI [] GI: Denies abdominal pain, nausea, vomiting, bloody stools or diarrhea [] : Denies dysuria or hematuria [] Musculoskeletal: Denies back pain or joint pain [] Integument: Denies any new rash or skin lesions [] Neurologic: Denies headache, focal weakness or sensory changes [] Endocrine: Denies polyuria or polydipsia [] All other systems were reviewed and found to be within normal limits, except as documented in this note. Allergies Allergies Allergies Coded Allergies Type Severity Reaction Last Updated Verified No Known Drug Allergies 04/05/16 No Physical Exam Physical Exam Constitutional: Well developed, well nourished, no acute distress, non-toxic appearance. [] HENT: Normocephalic, atraumatic, bilateral external ears normal, oropharynx moist, no oral exudates, nose normal. [] Eyes: PERRLA, EOMI, conjunctiva normal, no discharge. [] Neck: Normal range of motion, no tenderness, supple, no stridor. [] Cardiovascular:Heart rate regular rhythm, no murmur [] Lungs & Thorax: Bilateral breath sounds clear to auscultation [] Abdomen: Bowel sounds normal, soft, no tenderness, no masses, no pulsatile masses. [] Skin: Warm, dry, no erythema, no rash. [] Back: No tenderness, no CVA tenderness. [] Extremities: No tenderness, no cyanosis, no clubbing, ROM intact, 3+ bilateral lower extremity edema, mild erythema throughout the lower extremities Neurologic: Alert and oriented X 3, normal motor function, normal sensory function, no focal deficits noted. [] Psychologic: Affect normal, judgement normal, mood normal. [] Current Patient Data Vital Signs Vital Signs Date Time Temp Pulse Resp B/P (MAP) Pulse Ox O2 Delivery O2 Flow Rate FiO2 07/10/17 07:43 98.0 97 20 186/90 (122) 98 Room Air 98.0 EKG EKG [] Radiology/Procedures Radiology/Procedures [] Impressions: Lower extremity edema Course & Med Decision Making Course & Med Decision Making Pertinent Labs and Imaging studies reviewed. (See chart for details) Patient has a history of schizophrenia, bipolar, closed head injury he's been here numerous times for evaluation. We spoke with the long-term states that they rewrapped his legs last night and they've been doing everything prescribed by the doctor but the patient continues to request additional therapies. He is received all his medications and hasn't waiting for him when he returns this morning. We have rewrapped his legs as he he is requested. He is in stable condition at this time being discharged with return precautions. Dragon Disclaimer Dragon Disclaimer This electronic medical record was generated, in whole or in part, using a voice recognition dictation system. Departure Departure Impression: Primary Impression: Bilateral lower extremity edema Disposition: 01 HOME, SELF-CARE Condition: STABLE Referrals: DIAMOND LEONARDO (PCP) Patient Instructions: Edema, [id number] Additional Instructions: You were seen today to have your legs were rewrapped. We have rewrapped them and negative being discharged back to your long-term. They have all your medicines they're waiting on you. Please follow-up with her primary care physician within next few days. Return back to ER if you have severe pain, shortness of breath, chest pain, fevers or other concerns. MELIDA HERNANDEZ MD Jul 10, 2017 07:54
[2017-07-10 08:55] VITALS: BP 182/90
== END 2017-07-10 08:57 | disposition home or self-care (01) ==
LOC: ER 07:43
DX: R60.0 Localized edema (principal); I11.0 Hypertensive heart disease with heart failure; I50.9 Heart failure, unspecified; E11.40 Type 2 diabetes mellitus with diabetic neuropathy, unspecified; F20.9 Schizophrenia, unspecified; F31.9 Bipolar disorder, unspecified; I25.2 Old myocardial infarction; Z86.73 Personal history of transient ischemic attack (TIA), and cerebral infarction without residual deficits; F14.10 Cocaine abuse, uncomplicated
CPT/HCPCS: 99283

== ENCOUNTER 2020-05-21 11:20 | Emergency (ER) | payer MEDICAID ==
[~2020-05-21] VITALS: Ht 203.2 cm; Wt 159.0 kg
[2020-05-21 11:20] VITALS: BP 159/86
[~2020-05-21 11:20] MED LIST changes: +CLON-77 PO; -CLON0.5T3 PO; -FLUP5TAB PO; +FLUP5TAB3 PO; -GABA-586 PO; +GABA300C18 PO; +HYDR-3164 PO; -HYDR-971 PO; +METF500T16 PO; -METF500T4 PO; +OMEP40CA45 PO; -OMEP40CA5 PO; -OXCA600T PO; +OXCA600T9 PO; +POLY17PO28 PO; -POLY17PO3 PO; +POTA20TA4 PO; -POTA20TA82 PO; +TRAZ-118 PO; -TRAZ50TA15 PO
[2020-05-21] MEDS ORDERED: LIDO700A21 TP (11:38)
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
== END 2020-05-21 12:13 | disposition home or self-care (01) ==
LOC: ER 11:20
DX: G89.29 Other chronic pain (principal); M54.5 Low back pain; R60.0 Localized edema; R05 Cough; F41.9 Anxiety disorder, unspecified; F32.9 Major depressive disorder, single episode, unspecified; E11.40 Type 2 diabetes mellitus with diabetic neuropathy, unspecified; I25.2 Old myocardial infarction; F20.9 Schizophrenia, unspecified; I11.0 Hypertensive heart disease with heart failure; I50.9 Heart failure, unspecified; F14.90 Cocaine use, unspecified, uncomplicated; Z86.73 Personal history of transient ischemic attack (TIA), and cerebral infarction without residual deficits; Z87.891 Personal history of nicotine dependence; Z98.890 Other specified postprocedural states
CPT/HCPCS: 99283

== ENCOUNTER 2020-06-14 17:22 | Emergency (ER) | payer MEDICAID, OTHER ==
[~2020-06-14] VITALS: Ht 203.2 cm; Wt 135.0 kg
[~2020-06-14 17:22] MED LIST changes: +LIDO700A21 TP
[2020-06-14] MEDS ORDERED: MORPHINE SULFATE 10 MG/ML VIAL. IM ONE (19:15)
--- NOTE | 2020-06-14 19:18 | ED.ADGEN ---
Past Medical History Past Medical History: Anxiety, Bipolar, CHF, CVA, Depression, Diabetes-Type II, Hypertension, [place], Seizure, Schizophrenia, Other Additional Past Medical Histor: SUBDURAL HERMATOMA Past Surgical History: Other Additional Past Surgical Histo: VERICOSE VEINS, NEUROPATHY, HIATAL HERNIA ,CELLULITIS Smoking Status: Former Smoker Alcohol Use: Occasionally Drug Use: Cocaine General Adult EDM: Chief Complaint: LOWER EXT PAIN HPI: HPI: Patient is a 54 year old male who presents to the emergency room with request for pain medication. Patient states he was just discharged from [facility] at 3 PM this afternoon after being treated for cellulitis of both of his lower legs. Patient reports a history of bone spurs in his back and also has chronic low back pain. Patient currently rates the pain a 10 out of 10 on pain scale, he reports his pain is worse with movement and his leg pain is worse if you touch it. He denies any fall or trauma since being discharged from treatment this afternoon. The patient states he has not picked up his prescriptions yet. Review of Systems: Review of Systems: Complete ROS is negative unless otherwise noted in HPI. Current Medications: Current Medications Medications (Trade) Dose Ordered Sig/Paulie Start Time Stop Time Status Last Admin Dose Admin Morphine Sulfate (Morphine Sulfate) 5 mg 1X ONCE 06/14/20 19:15 06/14/20 19:16 UNV Allergies: Allergies: Allergies Coded Allergies Type Severity Reaction Last Updated Verified No Known Drug Allergies 04/05/16 No Physical Exam: PE: See Above Constitutional: Well developed, well nourished, no acute distress, non-toxic appearance, obese. [] HENT: Normocephalic, atraumatic, bilateral external ears normal, nose normal. [] Eyes: PERRLA, EOMI, conjunctiva normal, no discharge. [] Neck: Normal range of motion, no stridor. [] Cardiovascular:Heart rate regular rhythm Lungs & Thorax: Respirations even and unlabored, no retractions, no respiratory distress Back: No bony tenderness, bilateral paraspinal tenderness to palpation Skin: Warm, dry, no erythema, no rash. [] Extremities: Bilateral lower extremities have dressings with Coban in place, ROM intact Neurologic: Alert and oriented X 3, no focal deficits noted. [] Psychologic: Affect normal, judgement normal, mood normal. [] Current Patient Data: Vital Signs: Vital Signs Date Time Temp Pulse Resp B/P (MAP) Pulse Ox O2 Delivery O2 Flow Rate FiO2 06/14/20 18:41 98.5 97 18 184/93 (123) 92 Room Air 98.5 EKG: EKG: [] Heart Score: Risk Factors: Risk Factors: DM, Current or recent (<one month) smoker, HTN, HLP, family history of CAD, obesity. Risk Scores: Score 0 - 3: 2.5% MACE over next 6 weeks - Discharge Home Score 4 - 6: 20.3% MACE over next 6 weeks - Admit for Clinical Observation Score 7 - 10: 72.7% MACE over next 6 weeks - Early Invasive Strategies Radiology/Procedures: Radiology/Procedures: [] Course & Med Decision Making: Course & Med Decision Making Pertinent Labs and Imaging studies reviewed. (See chart for details) [] Dragon Disclaimer: Dragon Disclaimer: This electronic medical record was generated, in whole or in part, using a voice recognition dictation system. Departure Departure Impression: Primary Impression: Acute exacerbation of chronic low back pain Additional Impression: Bilateral lower extremity pain Disposition: 01 DC HOME SELF CARE/HOMELESS Condition: STABLE Referrals: DIAMOND LEONARDO (PCP) Patient Instructions: Chronic Back Pain Additional Instructions: Fill the prescriptions and discharge instructions that were given to you at [facility]. Follow-up as you were instructed. Return to the ER symptoms worsen or fever develops. Problem Qualifiers CARLY POWERS CLIENT FINANCE ANALYST Jun 14, 2020 19:18
[2020-06-14 20:00] VITALS: BP 141/68
== END 2020-06-14 20:00 | disposition home or self-care (01) ==
LOC: ER 17:22
DX: G89.29 Other chronic pain (principal); M54.5 Low back pain; M79.605 Pain in left leg; M79.604 Pain in right leg; F41.9 Anxiety disorder, unspecified; F32.9 Major depressive disorder, single episode, unspecified; E11.40 Type 2 diabetes mellitus with diabetic neuropathy, unspecified; I10 Essential (primary) hypertension; I11.0 Hypertensive heart disease with heart failure; I50.9 Heart failure, unspecified; F20.9 Schizophrenia, unspecified; I25.2 Old myocardial infarction; F14.90 Cocaine use, unspecified, uncomplicated; Z87.891 Personal history of nicotine dependence; Z98.890 Other specified postprocedural states
CPT/HCPCS: 96372; 99283; J2270

== ENCOUNTER 2020-06-19 02:27 | Emergency (ER) | payer OTHER ==
[~2020-06-19] VITALS: Ht 203.2 cm; Wt 147.0 kg
[2020-06-19 02:38] VITALS: BP 173/82
[2020-06-19] MEDS ORDERED: LIDOCAINE (700MG/PATCH) PATCH. ONE (02:51)
--- NOTE | 2020-06-19 02:53 | PHYS DOC ---
Past Medical History Past Medical History: Anxiety, Bipolar, CHF, CVA, Depression, Diabetes-Type II, Hypertension, [place], Seizure, Schizophrenia, Other Additional Past Medical Histor: SUBDURAL HERMATOMA Past Surgical History: Other Additional Past Surgical Histo: VERICOSE VEINS, NEUROPATHY, HIATAL HERNIA ,CELLULITIS Smoking Status: Former Smoker Alcohol Use: Occasionally Drug Use: Cocaine General Adult EDM: Chief Complaint: MECHANICAL FALL HPI: HPI: Patient is a 54 year old male with chronic back pain bilateral lower extremity cellulitis presents with a chief complaint of back pain. Patient states prior to arrival he slipped and fell landed on his buttocks reactivating his chronic lower back pain. Patient arrived via EMS. EMS states patient requested to go to [facility]. Patient was transported here he walked to the room from the ambulance bay. Patient states his pain is chronic but aggravated from his fall. Patient states he has prescription pain medications but has not picked them up. Patient has no saddle anesthesia no loss of bowel or bladder. Based upon history of present illness and physical exam do not feel the patient needs any radiologic imaging. Treatment today included a Lidoderm patch and a tablet of [place]. Review of Systems: Review of Systems: Constitutional: Denies fever or chills. [] Eyes: Denies change in visual acuity. [] HENT: Denies nasal congestion or sore throat. [] Respiratory: Denies cough or shortness of breath. [] Cardiovascular: Denies chest pain or edema. [] GI: Denies abdominal pain, nausea, vomiting, bloody stools or diarrhea. [] : Denies dysuria. [] Musculoskeletal: Denies back pain or joint pain. [] Integument: Denies rash. [] Neurologic: Denies headache, focal weakness or sensory changes. [] Endocrine: Denies polyuria or polydipsia. [] Lymphatic: Denies swollen glands. [] Psychiatric: Denies depression or anxiety. [] Heart Score: Risk Factors: Risk Factors: DM, Current or recent (<one month) smoker, HTN, HLP, family history of CAD, obesity. Risk Scores: Score 0 - 3: 2.5% MACE over next 6 weeks - Discharge Home Score 4 - 6: 20.3% MACE over next 6 weeks - Admit for Clinical Observation Score 7 - 10: 72.7% MACE over next 6 weeks - Early Invasive Strategies Current Medications: Current Medications Medications (Trade) Dose Ordered Sig/Paulie Start Time Stop Time Status Last Admin Dose Admin Acetaminophen/ Hydrocodone Bitart (Lortab 5/325) 1 tab 1X ONCE 06/19/20 02:45 06/19/20 02:46 UNV Lidocaine (Lidoderm) 1 patch DAILY 06/19/20 09:00 UNV Allergies: Allergies: Allergies Coded Allergies Type Severity Reaction Last Updated Verified No Known Drug Allergies 04/05/16 No Physical Exam: PE: Constitutional: Well developed, well nourished, no acute distress, non-toxic appearance. [] HENT: Normocephalic, atraumatic, bilateral external ears normal, oropharynx alice st, no oral exudates, nose normal. [] Eyes: PERRLA, EOMI, conjunctiva normal, no discharge. [] Neck: Normal range of motion, no tenderness, supple, no stridor. [] Cardiovascular:Heart rate regular rhythm, no murmur [] Lungs & Thorax: Bilateral breath sounds clear to auscultation [] Abdomen: Bowel sounds normal, soft, no tenderness, no masses, no pulsatile masses. [] Skin: Warm, dry, no erythema, no rash. [] Back: Lumbar tenderness L4-L5 midline and paraspinal nose step-off or deformity or crepitus, no CVA tenderness. [] Extremities: No tenderness, no cyanosis, no clubbing, ROM intact, no edema. [] Neurologic: Alert and oriented X 3, normal motor function, normal sensory function, no focal deficits noted. [No saddle anesthesia no loss of bowel or bladder patient ambulates with a steady gait] Psychologic: Affect normal, judgement normal, mood normal. [] EKG: EKG: [] Radiology/Procedures: Radiology/Procedures: [] Course & Med Decision Making: Course & Med Decision Making Pertinent Labs and Imaging studies reviewed. (See chart for details) [] Dragon Disclaimer: Brandy Disclaimer: This electronic medical record was generated, in whole or in part, using a voice recognition dictation system. Departure Departure Impression: Primary Impression: Acute exacerbation of chronic low back pain Additional Impression: Back pain Disposition: 01 DC HOME SELF CARE/HOMELESS Referrals: DIAMOND LEONARDO (PCP) Patient Instructions: Chronic Back Pain SUSIE PARRISH I DO Jun 19, 2020 02:53
[2020-06-19] MEDS ORDERED: LIDOCAINE (700MG/PATCH) PATCH. TD ONE (03:00)
[2020-06-19] MEDS ORDERED: HYDROcodone/APAP 5/325MG 1 TAB TABLET PO ONE (03:00)
== END 2020-06-19 03:20 | disposition home or self-care (01) ==
LOC: ER 02:27
DX: G89.29 Other chronic pain (principal); M54.5 Low back pain; G89.11 Acute pain due to trauma; I11.0 Hypertensive heart disease with heart failure; I50.9 Heart failure, unspecified; F31.9 Bipolar disorder, unspecified; F20.9 Schizophrenia, unspecified; E11.40 Type 2 diabetes mellitus with diabetic neuropathy, unspecified; I25.2 Old myocardial infarction; Z86.73 Personal history of transient ischemic attack (TIA), and cerebral infarction without residual deficits; Z87.891 Personal history of nicotine dependence; W01.0XXA Fall on same level from slipping, tripping and stumbling without subsequent striking against object, initial encounter; Y93.89 Activity, other specified; Y92.89 Other specified places as the place of occurrence of the external cause; Y99.8 Other external cause status
CPT/HCPCS: 99284